=== PATIENT | female | born 1995 ===

== ENCOUNTER → 2025-04-18 | Outpatient (CLI) | payer BC ==
[2025-04-23 20:07] LABS: AMPHETAMINE,URN,QUANT >5000 ng/mL; MDA,URN,QUANT <200 ng/mL; MDEA,URN,QUANT <200 ng/mL; MDMA,URN,QUANT <200 ng/mL; METHAMPHETAMINE,URN,QUANT <200 ng/mL; PHENTERMINE,URN,QUANT <200 ng/mL
== END ==
LOC: LAB SHORT 11:55 → LAB 11:55 → EDBD 11:55
PROVIDERS: Physician Assistant
DX: F90.0 Attention-deficit hyperactivity disorder, predominantly inattentive type (principal)
CPT/HCPCS: G0480